=== PATIENT | female | born 2005 | race Hispanic/Latino ===

== ENCOUNTER 2024-09-30 22:45 | Emergency (ER) | payer OTHER ==
[~2024-09-30] VITALS: Ht 167.6 cm; Wt 95.3 kg
[2024-09-30 22:47] VITALS: BP 144/90; PULSE 99; RESP 20; TEMP 97.9; O2SAT 99
--- NOTE | 2024-09-30 22:47 | NUR ---
UA CUP PROVIDED
--- NOTE | 2024-09-30 23:24 | HMCIMG ---
SACRUM/COCCYX 2+VWS HISTORY: Trauma COMPARISON: None TECHNIQUE: 3 images of sacrum and coccyx were obtained. FINDINGS: Fracture dislocation is seen of the coccyx. Degenerative changes are seen. IMPRESSION: 1. Findings as described above.
--- NOTE | 2024-09-30 23:29 | HMCIMG ---
LUMBAR SPINE 2-3VWS HISTORY: Trauma COMPARISON: None FINDINGS: Images were obtained. There is straightening of normal lordotic curvature which may be related to muscle spasm or positioning. No loss of vertebral height is seen. No fracture or dislocation is seen. IMPRESSION: 1. No fracture is seen.
--- NOTE | 2024-10-01 00:01 | NUR ---
PT IN LOBBY EATING, TOLERATING WELL. LAUGHING AND TALKING WITH BOSS AND ER STAFF. NO ACUTE DISTRESS NOTED AT THIS TIME. GOOD CHEST RISE AND FALL NOTED
--- NOTE | 2024-10-01 00:37 | NUR ---
CONSULTATION CALL PLACED TO [facility] FOR NEUROSURGERY CONSULTATION PER Joanna CARDONA MD
[2024-10-01] MEDS ORDERED: NAPR-1192 PO (01:08)
--- NOTE | 2024-10-01 01:11 | ERN ---
ED Note History of Present Illness Stated Complaint: LOW BACK PAIN Chief Complaint: Low Back Pain/Injury Time Seen by MD: 22:48 Time Seen by Midlevel: 22:55 Dictation: 19-year-old female with no past medical history coming in complaining of area pain to her tailbone and lower back after fall. Patient denies hitting her head, no LOC, has not taking any blood thinners. No other complaints at this time. Allergies: Coded Allergies: No Known Allergies (Unverified Allergy, Unknown, 09/30/24) Home Meds Active Scripts Naproxen (Naproxen) 375 Mg Tablet, 375 MG PO BID for 5 Days, #10 TAB 0 Refills Prov:ANDER CABRAL NP 10/01/24 Past Medical History Past Medical History: No Pertinent History Surgical History: Other Surgical History Other: NERVE ABLASION LMP: Sep 16, 2024 Review of System Dictation Constitutional: Negative for fever,chills, and weight loss Eyes: Negative for injury, pain,redness, and discharge ENT: Negative for injury,pain or swelling Cardiovascular: Negative for chest pain, palpitations, and edema Respiratory: Negative for shortness of breath, cough, and wheezing, Abdomen/GI: Negative for abdominal pain, nausea, vomiting, diarrhea, and constipation Back: Negative for injury and pain : Negative for injury, bleeding and discharge MS/Extremity: Negative for injury and deformity complaining of lower back pain and tailbone pain Skin: Negative for rash, and discoloration Neuro: Negative for headache, weakness, numbness, tingling, and seizure Psych: Negative for suicide ideation, homicidal ideation, and hallucinations Review of Systems: was completed Initial Vital Sign VS Vital Signs Date Time Temp Pulse Resp B/P (MAP) Pulse Ox O2 Delivery O2 Flow Rate FiO2 09/30/24 22:47 97.9 99 20 144/90 99 Room Air* 0 21 Physical Exam Dictation General: awake, alert, NAD Head/Face: Normocephalic, atraumatic Eyes: PERRL, EOMI, vision at baseline ENT: oral cavity clear, TMs clear, no signs of infection Neck: Trachea midline, supple, no nuchal rigidity Cardiovascular: RRR, normal S1/S2, No MRGs, no JVD Respiratory: CTAB, no respiratory distress, No rales or wheezes Abdomen: Soft, non-tender, non-distended, normal bowel sounds, no guarding or rebound. Skin: Warm, dry, normal turgor, no rash MS/Extremity: Pulses equal, no cyanosis, neurovascular intact, FROM Neuro: COAx4, GCS 15, strength 5/5, CN 2-12 intact, normal cerebellar exam, normal gait, Psych: Normal behavior, mood, and affect normal Results (Laboratory/Radiology) X-RAY Comment: [place] [id number] [address] [id number] IMAGING REPORT Signed PATIENT: HECTOR LOPEZ MR#: [id number] : 2005 SEX: F AGE: 19 LOCATION: ED ORDER 53 STATUS: REG ER [facility] REPORT#: [id number] SERVICE 52 REASON: trauma ORDERING PHYSICIAN: ANDER CABRAL NP PROCEDURE: SAC AMANDA 2V - SACRUM/COCCYX 2+VWS SACRUM/COCCYX 2+VWS HISTORY: Trauma COMPARISON: None TECHNIQUE: 3 images of sacrum and coccyx were obtained. FINDINGS: Fracture dislocation is seen of the coccyx. Degenerative changes are seen. IMPRESSION: 1. Findings as described above. DICTATED BY: ROMEO HARTMAN MD DATE: 09/30/242320 ELECTRONICALLY SIGNED BY: ROMEO HARTMAN MD DATE: 09/30/242323 [place] [address] [id number] IMAGING REPORT Signed PATIENT: HECTOR LOPEZ MR#: [id number] : 2005 SEX: F AGE: 19 LOCATION: EDH ORDER 53 STATUS: REG ER REPORT#: [id number] SERVICE 52 REASON: trauma ORDERING PHYSICIAN: ANDER CABRAL NP PROCEDURE: LUMB 2 3VW - LUMBAR SPINE 2-3VWS LUMBAR SPINE 2-3VWS HISTORY: Trauma COMPARISON: None FINDINGS: Images were obtained. There is straightening of normal lordotic curvature which may be related to muscle spasm or positioning. No loss of vertebral height is seen. No fracture or dislocation is seen. IMPRESSION: 1. No fracture is seen. DICTATED BY: ROMEO HARTMAN MD DATE: 09/30/242325 ELECTRONICALLY SIGNED BY: ROMEO HARTMAN MD DATE: 09/30/242328 ED Course ED Course Orders Procedure Category Date Status Time Lumbar Spine 2-3vws RAD 09/30/24 Resulted 22:53 Sacrum/Coccyx 2+Vws RAD 09/30/24 Resulted 22:53 Vital Signs Date Time Temp Pulse Resp B/P (MAP) Pulse Ox O2 Delivery O2 Flow Rate FiO2 09/30/24 22:47 97.9 99 20 144/90 99 Room Air 09/30/24 22:47 97.9 99 20 144/90 99 Room Air* 0 21 Medical Decision Making MDM MDM: 19-year-old female with no past medical history coming in complaining of a karin pain to her tailbone and lower back after fall. Patient denies hitting her head, no LOC, has not taking any blood thinners. No other complaints at this time. On physical exam patient has clear bilateral lung sounds, abdomen is soft and nondistended. Patient ambulatory, no neurological deficits. No numbness, no tingling, no incontinence, no saddle anesthesia. X-ray of the coccyx area shows fractured and displaced coccyx. Spoke to Dr. Raman, orthopedic, states he does not consult on this patient is a when he to consult Neurosurgery. There is no neurosurgery on-call so transfer center was called.0030 as per transfer center about only bag tummy and they do not have anybody on-call for Neurosurgery. Spoke to patient, educated patient to maintain rest until cleared by either neurosurgery or PCP, take anti-inflammatories for pain, use a doughnut cushion for comfort. Patient verbalized understanding, answered all questions. Differential diagnosis: Lower back pain, lower back strain, Rationale: Tests considered and ordered secondary to shared decision making include: Previous outside records reviewed: Old ER visits. Risk of complication and/or morbidity or mortality of patient management: None Medications-Per medication reconciliation Need for hospitalization: Patient does not meet criteria for hospitalization. Need for emergency major/minor surgery: No There are no social concerns with this patient. Prescription drug management Prescriptions will include symptomatic care Patient's prior external medical records from other ER visits were reviewed by me as indicated. Prior testing and results from previous visits were reviewed. Prior tests were taken into account with medical decision making and resource utilization, independent historian/historians were used to obtain complete medical history. I independently interpreted the test that were performed, results were reviewed by me and considered findings on radiology if ordered. Medical management and examination interpretation discussions were had by me with other qualified healthcare professionals as indicated for the patient's care. DX & DISP Disposition: Discharge Departure Impression: Primary Impression: Fractured coccyx Condition: Stable Scripts Naproxen (Naproxen) 375 Mg Tablet 375 MG PO BID for 5 Days, #10 TAB 0 Refills Prov: ANDER CABRAL NP 10/01/24 Additional Instructions: rest, use doughnut pillow for comfort, at worst and ice area. Follow up with Neurosurgery or PCP in 1-2 days. Take anti-inflammatories for pain management. Referrals: JEREMIAH DIALLO MD Time of Disposition: 00:50 I have reviewed the case, and I agree with, Diagnosis and Plan ANDER CABRAL NP Oct 01, 2024 01:11
== END 2024-10-01 01:22 | disposition home or self-care (01) ==
LOC: EDH 22:45
DX: S32.2XXA Fracture of coccyx, initial encounter for closed fracture (principal); Z79.899 Other long term (current) drug therapy; W18.39XA Other fall on same level, initial encounter; Y93.89 Activity, other specified; Y92.89 Other specified places as the place of occurrence of the external cause; Y99.8 Other external cause status
CPT/HCPCS: 72100; 72220; 99284